=== PATIENT | female | born 1985 | race African-American/Black ===

== ENCOUNTER 2016-12-27 07:15 | Inpatient (IN) | payer OTHER ==
[2016-12-27 08:32] VITALS: BMI 31.2
[2016-12-27] MEDS: DEXTROSE 5%-LACTATED RINGERS 1,000 ML IV SCH (09:10)
[2016-12-27 09:15] LABS: BASOPHIL 0.4 % (0-2.0); EOSINOPHIL 1.5 % (0-4.5); MCH 28.4 pg (25.7-33.7); MCHC 33.5 g/dl (32.0-36.0); MEAN CELL VOLUME 84.9 fl (80-96); MEAN PLT VOLUME 9.1 fl (7.5-11.1); NEUTROPHILS 52.3 % (42.8-82.8); PLATELET COUNT 195 K/MM3 (134-434); RDW 18.7 % (11.6-15.6); WHITE BLOOD COUNT 5.5 K/mm3 (4.0-10.0)
[2016-12-27 09:47] LABS: INR 0.97 (0.82-1.09); PROTHROMBIN TIME (PATIENT) 10.7 SEC (9.98-11.88)
[2016-12-27 09:50] LABS: ACTIVATED PTT 28.9 SECONDS (26.9-34.4)
[2016-12-27 09:53] LABS: CALCIUM 8.8 mg/dL (8.5-10.1); CREATININE 0.9 mg/dL (0.55-1.02)
[2016-12-27] MEDS ORDERED: OXYTOCIN 15 UNITS/ LR 250 ML 250 ML IVPB SCH (10:00)
--- NOTE | 2016-12-27 10:47 | HP ---
Past Medical History - Primary Care Physician PCP:: Michele Cheatham - Admission Chief Complaint: 31 yo P1 with at EGA 40w5d admitted for labor induction. History of Present Illness: Post term Hemoglobin C trait. 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: Alzheimer's, CVA, Dementia, Migraine, Multiple Sclerosis, Peripheral Neuropathy, Parkinson's, Seizure, Syncope, TIA, Vertigo, Other Cardiovascular: No: AFIB, Aneurysm, Aortic Insufficiency, Aortic Stenosis, CAD, CHF, Deep Vein Thrombosis, HTN, Hyperlipdemia, [place], Mitral Insufficiency, Mitral Stenosis, Murmur, Pulmonary Hypertension, Other Pulmonary: No: Asthma, Bronchitis, Cancer, COPD, O2 Dependent, Pneumonia, Previously Intubated, Pulmonary Embolus, Pulmonary Fibrosis, Sleep Apnea, Other Gastrointestinal: No: Ascites, Cancer, Constipation, Crohn's Disease, Diverticulitis, Diverticulosis, Esophageal Varices, Gastritis, GERD, GI Bleed, Hemorrhoids, Hiatal Hernia, Inflamatory Bowel Disease, Irritable Bowel Disease, Pancreatitis, Peptic Ulcer Disease, Ulcerative Colitis, Other Hepatobiliary: No: Cirrhosis, Cholelithiasis, Cholecystitis, Choledocholithiasis , Hepatitis A, Hepatitis B, Hepatitis C, Other Renal/: No: Renal Failure, Renal Inusuff, BPH, Cancer, Hematuria, Hemodialysis , Neurogenic Bladder, Renal Calculi, UTI, Other Reproductive: No: Ectopic , Endometriosis, Fibroids, PID, Polycystic Ovary Syndrome, Postmenopausal, Other ...: 2 ...Para: 1 ...Term: 1 () ...: 0 ...Spon : 0 ...Induced : 0 ...Multiple Gestation: 0 ...LMP: 03/14/16 ... Weeks Gestation by Dates: 41.1 ...EDC by Dates: 12/19/16 ...EDC by Sono: 12/22/16 Heme/Onc: Yes: Anemia Infectious Disease: No: AIDS, C-Diff, Herpes Zoster, HIV, MRSA, STD's, Tuberculosis, VREF, Other Psych: No: Addictions, Anxiety, Bipolar, Depression, Panic, Psychosis, Schizophrenia, Other Musculoskeletal: No: Bursitis, Chronic low back pain, Hemiparesis, Hemiplegia, Osteoarthritis, Paraplegia, Other Rheumatology: No: Fibromyalgia, Gout, Lupus, Rheumatoid Arthritis, Sarcoidosis, Vasculitis, Other ENT: No: Allergic Rhinitis, Sinusitis, Other Endocrine: No: Bountiful's Disease, Erika's Disease, Diabetes Insipidus, Diabetes Mellitus, Hyperparathyroidism, Hyperthyroidism, Hypothyroidism, Osteopenia, SIADH, Other Dermatology: No: Basal Cell, Cellulitis, Eczema, Melanoma, Psoriasis, Squamous Cell, Other - Past Surgical History Past Surgical History: Yes: Breast Biopsy (Right) Hx Myomectomy: No Hx Transabdominal Cerclage: No - Smoking History Smoking history: Never smoked Have you smoked in the past 12 months: No Aproximately how many cigarettes per day: 0 - Alcohol/Substance Use Hx Alcohol Use: No History of Substance Use: reports: None - Social History Usual Living Arrangement: Yes: With Significant Other, With Child ADL: Independent History of Recent Travel: No Home Medications - Allergies Allergies/Adverse Reactions: Allergies Allergy/AdvReac Type Severity Reaction Status Date / Time No Known Allergies Allergy Verified 12/15/16 12:48 - Home Medications Home Medications: Ambulatory Orders Vitamins (Sjr) - [ .Vitamins *Rx*] 1 tab PO DAILY 07/10/12 Calcium Carbonate [Tums] 200 mg PO PRN 12/27/16 Family Disease History - Family Disease History Family History: Unremarkable Review of Systems Findings/Remarks: No complaints, well appearing - Review of Systems Constitutional: reports: No Symptoms Eyes: reports: No Symptoms HENT: reports: No Symptoms Neck: reports: No Symptoms Cardiovascular: reports: No Symptoms Respiratory: reports: No Symptoms Gastrointestinal: reports: No Symptoms Genitourinary: reports: No Symptoms Breasts: reports: No Symptoms Reported Musculoskeletal: reports: No Symptoms Integumentary: reports: No Symptoms Endocrine: reports: No Symptoms Hematology/Lymphatic: reports: No Symptoms Psychiatric: reports: No Symptoms Pain Intensity: 0 Physical Exam - Maternity Vital Signs: Vital Signs Temperature 98.2 F 12/27/16 10:00 Pulse Rate 80 12/27/16 10:00 Respiratory Rate 18 12/27/16 10:00 Blood Pressure 137/79 12/27/16 10:00 O2 Sat by Pulse Oximetry (%) Constitutional: Yes: Well Nourished, No Distress, Calm Eyes: Yes: WNL, Conjunctiva Clear HENT: Yes: WNL, Atraumatic, Normocephalic Neck: Yes: WNL, Supple, Trachea Midline Cardiovascular: Yes: WNL, Regular Rate and Rhythm - Abdominal Exam/OB Fundal Height: 40 (EFW 8.5 lbs by Watson maneuvers) Number of Fetuses: Single Presentation: Vertex Contractions: No Intensity: Unaware Monitor Mode: External Heart Rate (range): 140 Category: I Accelerations: Non-Uniform Decelerations: None - Vaginal Exam/OB Vaginal Bleediing: No Speculum Exam: No Dilatation (cm): 2 Effacement (%): 50 Amniotic Membrane Status: Intact Presentation: Vertex/Position Station: -4 (Adequate gynecoid pelvimetry) - Physical Exam Musculoskeletal: Yes: WNL Extremities: Yes: WNL Edema: No Integumentary: Yes: WNL Deep Tendon Reflex Grade: Normal +2 ...Motor Strength: WNL Psychiatric: Yes: WNL, Alert, Oriented - Labs Lab Results: CBC, BMP 12/27/16 08:55 12/27/16 08:55 Hemorrhage Risk Assessment - Risk Factors Medium Risk Factors: Yes: None High Risk Factors: Yes: None Risk Score: 1 Risk Level: Medium Risk Imaging - Results Ultrasound: Report Reviewed Assessment/Plan 31 yo P1 with at EGA 40w5d admitted for labor induction. Fetus with Category I tracing and requires no intervention. Patient is not in labor and has favorable cervix. We discussed the treatment options including expectant management awaiting spontaneous labor, Cervidil vs pitocin for labor induction. We discussed the risks and benefits of each option. The patient prefers to proceed with pitocin and monitor labor progress. I explained the risks of failed induction, tacysystole, distress, shoulder dystocia, and/or maternal trauma, hemorrhage, need for section, etc. The pt verbalized her understanding and requested to proceed.
[2016-12-27] MEDS ORDERED: TUBERCULIN PPD 5 TU/0.1ML SYRINGE (IN PATIENT USE ONLY) ID ONE (11:00)
[2016-12-27 11:43] LABS: HIV 1 AGp24 NEGATIVE
[2016-12-27 11:46] LABS: HIV 1 & 2 AB NEGATIVE
[2016-12-27] MEDS ORDERED: BUTORPHANOL TARTRATE 1 MG/ML VIAL IVPB ONE (20:00)
[2016-12-27] MEDS ORDERED: PROMETHAZINE HCL 25 MG/1 ML VIAL IVPB ONE (20:00)
--- NOTE | 2016-12-27 20:21 | PN ---
Ante-Partal Exam - Subjective Subjective: No complaints, s/p AROM at 7pm with minimal fluid Vital Signs: Vital Signs Temperature 98.2 F 12/27/16 14:00 Pulse Rate 70 12/27/16 19:00 Respiratory Rate 20 12/27/16 19:00 Blood Pressure 123/79 12/27/16 19:00 O2 Sat by Pulse Oximetry (%) Bleeding: No Headache: No Visual changes: No Right upper quadrant pain: No Pain (scale 1-10): 3 - Contractions Contractions: Yes Regularity: Irregular Intensity: Mild Monitor Mode: External - Exam during Labor Heart Rate: 130 Variability: Moderate Heart Rate Location: Midline Category: I Monitor Accelerations: Present Monitor Decelerations: None Exam: Vaginal Dilatation (cm): 3 Effacement (%): 70 Amniotic Membrane Status: Ruptured (AROM) Amniotic Fluid: Clear Presentation: Vertex Station: -3 - Intrapartum Hemorrhage Risk Medium Risk Factors: None High Risk Factors: None Risk Score: 0 Risk Level: Low Risk - Assessment/Plan Assessment/Plan: 31 yo P1 induced at 40w5d. Patient is progressing in latent labor. Fetus requires no intervention. Monitor labor progress. Continue oxytocin.
[2016-12-27] MEDS: D5W-LR W/ 20 UNITS OXYTOCIN 1,000 ML IV SCH (22:34)
[2016-12-27 22:41] LABS: ARTERIAL BLD GAS O2 SATURATION 26.9 % (90-98.9); ARTERIAL BLOOD GAS BASE EXCESS -1.7 meq/l (-2-2); ARTERIAL BLOOD GAS HCO3 25.7 meq/L (22-26); ARTERIAL BLOOD GAS pH 7.29 (7.35-7.45)
[2016-12-27 22:45] LABS: PT. ON O2? NO
[2016-12-27] MEDS ORDERED: METHYLERGONOVINE MALEATE 0.2 MG/1 ML AMP IM PRN (22:46)
[2016-12-27] MEDS ORDERED: BENZOCAINE 28 GM HEMORRHOIDAL OINTMENT TP PRN (22:46)
[2016-12-27] MEDS ORDERED: BISACODYL 10 MG SUPP.RECT RC PRN (22:46)
[2016-12-27] MEDS ORDERED: WITCH HAZEL 50% (TUCKS) 40 PAD/JAR PAD TP PRN (22:46)
[2016-12-27] MEDS ORDERED: BENZOCAINE 20% 57 GM BOTTLE TP PRN (22:46)
[2016-12-27 22:47] LABS: ARTERIAL BLOOD GAS PO2 18.3 mmHg (80-100)
--- NOTE | 2016-12-27 23:02 | PN ---
Delivery - Delivery Vaginal Delivery: No Problems, Spontaneous Type of Anesthesia: Local Episiotomy/Laceration: Vaginal Extension/lac, 2nd degree EBL (cc): 300 Delivery, Single - Stages of Labor Date 1st Stage Initiatied: 12/27/16 Time 1st Stage Initiated: 20:00 Date 2nd Stage Initiated: 12/27/16 Time 2nd Stage Initiated: 22:05 Date of Delivery: 12/27/16 Time of Delivery: 22:19 Date Placenta Delivered: 12/27/16 Time Placenta Delivered: 22:34 Placenta: Yes: Spontaneous, Normal Configuration - Condition of Infant Senior Financial Reporting Accountant/Jewel Lathe Operator Present: No Gender: Female Position: Left, OA Total Hours ROM (Hrs/Mins): 3hrs/24mins - 1 Minute Total Score: 9 5 Minutes Total Score: 9 - Feeding Plan Initial Plan: Elected not to breastfeed exclusively throughout hospitalization Remarks - Remarks Remarks: Venous cord blood clotted
[2016-12-27] MEDS: ACETAMINOPHEN 325 MG TABLET (FP) PO PRN (23:30)
[2016-12-27] MEDS: IBUPROFEN 600 MG TABLET (FP) PO PRN (23:30)
[2016-12-28] MEDS: D5W-LR W/ 20 UNITS OXYTOCIN 1,000 ML IV SCH (03:11)
[2016-12-28] MEDS: ACETAMINOPHEN 325 MG TABLET (FP) PO PRN ×4 (05:28→19:37)
[2016-12-28] MEDS: IBUPROFEN 600 MG TABLET (FP) PO PRN ×4 (05:29→19:36)
[2016-12-28 08:51] LABS: BASOPHIL 0.4 % (0-2.0); EOSINOPHIL 0.7 % (0-4.5); MCH 28.3 pg (25.7-33.7); MCHC 33.1 g/dl (32.0-36.0); MEAN CELL VOLUME 85.3 fl (80-96); MEAN PLT VOLUME 9.1 fl (7.5-11.1); NEUTROPHILS 65.2 % (42.8-82.8); PLATELET COUNT 153 K/MM3 (134-434); RDW 18.5 % (11.6-15.6); WHITE BLOOD COUNT 8.2 K/mm3 (4.0-10.0)
[2016-12-28] MEDS: PRENATAL VITAMINS W/ FOLIC ACID TABLET (FP) PO SCH (09:27)
[2016-12-28] MEDS ORDERED: DIPHTH,PERTUSS(ACELL),TET 0.5 ML DISP.SYRIN IM ONE (10:00)
--- NOTE | 2016-12-28 21:40 | PN ---
Post Progress Note - Subjective Subjective: No complaints Post Day: 1 Type of Delivery: Vital Signs: Vital Signs Temperature 98.8 F 12/28/16 18:00 Pulse Rate 100 H 12/28/16 18:00 Respiratory Rate 20 12/28/16 18:00 Blood Pressure 129/79 12/28/16 18:00 O2 Sat by Pulse Oximetry (%) 100 12/27/16 23:15 Breast Exam: Yes: Soft Uterus: Yes: Fundus Firm, Fundus below umbilicus, Non-tender Abdomen/GI: Yes: Abdomen soft, Passing flatus, Tolerating PO Lochia: Yes: Rubra Lochia, amount: Small Extremities: Yes: Calves non-tender, Edema Perineum: Yes: Episiotomy Activity: Ambulating - Labs Labs: CBC WBC 8.2 K/mm3 (4.0-10.0) D 12/28/16 07:45 RBC 2.76 M/mm3 (3.60-5.2) L D 12/28/16 07:45 Hgb 7.8 GM/dL (10.7-15.3) L D 12/28/16 07:45 Hct 23.6 % (32.4-45.2) L D 12/28/16 07:45 MCV 85.3 fl (80-96) 12/28/16 07:45 MCHC 33.1 g/dl (32.0-36.0) 12/28/16 07:45 RDW 18.5 % (11.6-15.6) H 12/28/16 07:45 Plt Count 153 K/MM3 (134-434) D 12/28/16 07:45 MPV 9.1 fl (7.5-11.1) 12/28/16 07:45 Neutrophils % 65.2 % (42.8-82.8) D 12/28/16 07:45 Lymphocytes % 26.0 % (8-40) D 12/28/16 07:45 Monocytes % 7.7 % (3.8-10.2) 12/28/16 07:45 Eosinophils % 0.7 % (0-4.5) 12/28/16 07:45 Basophils % 0.4 % (0-2.0) 12/28/16 07:45 Assessment/Plan 31 yo P2 s/p , doing well stable, afebrile. care instructions reviewed. Continue routine care. Ambulation encouraged Discharge instruction reviewed.
[2016-12-28] MEDS ORDERED: SENNOSIDES/DOCUSATE COMBO (SENNA PLUS) TABLET (UD) PO PRN (22:00)
[2016-12-29 08:11] VITALS: BP 115/73; PULSE 93; TEMP 98.1
[2016-12-29] MEDS: PRENATAL VITAMINS W/ FOLIC ACID TABLET (FP) PO SCH (09:18)
[2016-12-29] MEDS: ACETAMINOPHEN 325 MG TABLET (FP) PO PRN (09:19)
[2016-12-29] MEDS: IBUPROFEN 600 MG TABLET (FP) PO PRN (09:22)
[2016-12-29] MEDS: DEXTROSE 5%-LACTATED RINGERS 1,000 ML IV SCH (11:12)
[2016-12-29] MEDS: D5W-LR W/ 20 UNITS OXYTOCIN 1,000 ML IV SCH (11:12)
== END 2016-12-29 11:05 | disposition home or self-care (01) | DRG 560 ==
LOC: JLDR 07:15 → J3W 12-28 01:00
PROVIDERS: ADMIT Obstetrics & Gynecology; ATTEND Obstetrics & Gynecology
PROC: 0KQM0ZZ Repair Perineum Muscle, Open Approach (ICD-10-PCS; principal; 2016-12-27)
PROC: 0W8NXZZ Division of Female Perineum, External Approach (ICD-10-PCS; 2016-12-27)
PROC: 10E0XZZ Delivery of Products of Conception, External Approach (ICD-10-PCS; 2016-12-27)
DX: O70.1 Second degree perineal laceration during delivery (principal); Z3A.40 40 weeks gestation of pregnancy; O48.0 Post-term pregnancy; Z37.0 Single live birth
CPT/HCPCS: 36415; 36600; 59409; 80048; 82803; 85025; 85610; 85730; 86593; 86850; 86900; 86901; 87389; 90715

== ENCOUNTER 2017-11-28 04:41 | Day surgery (SDC) | payer OTHER ==
[2017-11-23 12:21] VITALS: BMI 28.1
--- NOTE | 2017-11-28 10:12 | HP ---
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: Alzheimer's, CVA, Dementia, Migraine, Multiple Sclerosis, Peripheral Neuropathy, Parkinson's, Seizure, Syncope, TIA, Vertigo, Other Cardiovascular: No: AFIB, Aneurysm, Aortic Insufficiency, Aortic Stenosis, CAD, CHF, Deep Vein Thrombosis, HTN, Hyperlipdemia, [place], Mitral Insufficiency, Mitral Stenosis, Murmur, Pulmonary Hypertension, Other Pulmonary: No: Asthma, Bronchitis, Cancer, COPD, O2 Dependent, Pneumonia, Previously Intubated, Pulmonary Embolus, Pulmonary Fibrosis, Sleep Apnea, Other Gastrointestinal: No: Ascites, Cancer, Constipation, Crohn's Disease, Diverticulitis, Diverticulosis, Esophageal Varices, Gastritis, GERD, GI Bleed, Hemorrhoids, Hiatal Hernia, Inflamatory Bowel Disease, Irritable Bowel Disease, Pancreatitis, Peptic Ulcer Disease, Ulcerative Colitis, Other Hepatobiliary: No: Cirrhosis, Cholelithiasis, Cholecystitis, Choledocholithiasis , Hepatitis A, Hepatitis B, Hepatitis C, Other Renal/: No: Renal Failure, Renal Inusuff, BPH, Cancer, Hematuria, Hemodialysis , Neurogenic Bladder, Renal Calculi, UTI, Other Reproductive: No: Ectopic , Endometriosis, Fibroids, PID, Polycystic Ovary Syndrome, Postmenopausal, Other ...Para: 2 Heme/Onc: Yes: Anemia Infectious Disease: No: AIDS, C-Diff, Herpes Zoster, HIV, MRSA, STD's, Tuberculosis, VREF, Other Psych: No: Addictions, Anxiety, Bipolar, Depression, Panic, Psychosis, Schizophrenia, Other Musculoskeletal: No: Bursitis, Chronic low back pain, Hemiparesis, Hemiplegia, Osteoarthritis, Paraplegia, Other Rheumatology: No: Fibromyalgia, Gout, Lupus, Rheumatoid Arthritis, Sarcoidosis, Vasculitis, Other ENT: No: Allergic Rhinitis, Sinusitis, Other Endocrine: No: Miguelito's Disease, Erika's Disease, Diabetes Insipidus, Diabetes Mellitus, Hyperparathyroidism, Hyperthyroidism, Hypothyroidism, Osteopenia, SIADH, Other Dermatology: No: Basal Cell, Cellulitis, Eczema, Melanoma, Psoriasis, Squamous Cell, Other - Past Surgical History Past Surgical History: Yes: Breast Biopsy (Right) Hx Myomectomy: No Hx Transabdominal Cerclage: No - Smoking History Smoking history: Never smoked Have you smoked in the past 12 months: No Aproximately how many cigarettes per day: 0 - Alcohol/Substance Use Hx Alcohol Use: No History of Substance Use: reports: None - Social History Usual Living Arrangement: Yes: With Spouse, With Child ADL: Independent History of Recent Travel: No Home Medications - Allergies Allergies/Adverse Reactions: Allergies Allergy/AdvReac Type Severity Reaction Status Date / Time Fish Containing Products Allergy Mild ITCH IN Verified 11/28/17 09:40 THROAT - Home Medications Home Medications: Ambulatory Orders NK [No Known Home Medication] 11/23/17 Family Disease History - Family Disease History Family History: Unremarkable Review of Systems - Review of Systems Constitutional: reports: No Symptoms Eyes: reports: No Symptoms HENT: reports: No Symptoms Neck: reports: No Symptoms Cardiovascular: reports: No Symptoms Respiratory: reports: No Symptoms Gastrointestinal: reports: No Symptoms Genitourinary: reports: No Symptoms Breasts: reports: No Symptoms Reported Musculoskeletal: reports: No Symptoms Integumentary: reports: No Symptoms Neurological: reports: No Symptoms Endocrine: reports: No Symptoms Hematology/Lymphatic: reports: No Symptoms Psychiatric: reports: No Symptoms Pain Intensity: 0 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 Vital Signs: Vital Signs Temperature 97.9 F 11/28/17 09:37 Pulse Rate 92 H 11/28/17 09:37 Respiratory Rate 16 11/28/17 09:37 Blood Pressure 113/82 11/28/17 09:37 O2 Sat by Pulse Oximetry (%) 99 11/28/17 09:37 Constitutional: Yes: Well Nourished, No Distress, Calm Eyes: Yes: WNL, Conjunctiva Clear HENT: Yes: WNL, Atraumatic, Normocephalic Neck: Yes: WNL, Supple, Trachea Midline Cardiovascular: Yes: WNL, Regular Rate and Rhythm Respiratory: Yes: WNL, Regular, CTA Bilaterally Gastrointestinal: Yes: WNL, Normal Bowel Sounds, Soft ...Rectal Exam: Yes: Deferred Renal/: Yes: WNL Pelvis: Yes: WNL External Genitalia: Yes: Normal Internal Exam Deferred: No Vaginal Exam: Yes: Normal Cervix: Yes: Normal Uterus: Yes: Normal Adnexa: Normal: Left, Right Breast(s): Yes: WNL Musculoskeletal: Yes: WNL Extremities: Yes: WNL Edema: No Integumentary: Yes: WNL Neurological: Yes: WNL, Alert, Oriented ...Motor Strength: WNL Psychiatric: Yes: WNL, Alert, Oriented Assessment/Plan 32yo P2 admitted for surgical sterilization. The pt prefers laparoscopic bilateral tubal ligation. We had discussed the risks, benefits, alternatives of surgery at length including but not limited to infection, bleeding, scarring, perforation, amenorrhea, infertility, hysterectomy, injury to surrounding/ underlying organs or structure, need for additional surgery to repair/treat any complications, etc. The patient verbalized understanding and requested to proceed with surgery. I emphasized that all surgeries have risks and no guarantees can be provided.
[2017-11-28] MEDS ORDERED: fentaNYL CITRATE 250 MCG/5 ML VIAL ONE (10:20)
[2017-11-28] MEDS ORDERED: MIDAZOLAM HCL 2 MG/2 ML SINGLE DOSE VIAL ONE ×2 (10:21)
[2017-11-28] MEDS ORDERED: LIDOCAINE HCL 1%, 10 MG/ML (20ML VIAL) ONE (10:30)
[2017-11-28] MEDS ORDERED: ceFAZolin SODIUM 1 GM VIAL ONE (10:30)
[2017-11-28] MEDS ORDERED: PROPOFOL 20 ML ONE (10:30)
[2017-11-28] MEDS ORDERED: ROCURONIUM BROMIDE 50 MG/5 ML VIAL ONE (10:30)
[2017-11-28] MEDS ORDERED: DEXAMETHASONE SOD PHOSPHATE 4 MG/1 ML VIAL ONE (10:30)
[2017-11-28] MEDS ORDERED: ceFAZolin SODIUM 1 GM VIAL IVPB ONE (10:50)
[2017-11-28] MEDS ORDERED: ACETAMINOPHEN INJECTION 100 ML IVPB ONE (10:54)
[2017-11-28] MEDS ORDERED: DESFLURANE GAS 240 ML BOTTLE IH ONE (10:55)
[2017-11-28] MEDS ORDERED: NEOSTIGMINE METHYLSULFATE 0.5 MG/ML - 10 ML MDV ONE (11:29)
--- NOTE | 2017-11-28 11:35 | OP ---
Operative Note - Note: Operative Date: 11/28/17 Pre-Operative Diagnosis: Sterilization Operation: Laparoscopic BTL Findings: Normal uterus, tubes, ovaries Post-Operative Diagnosis: Same as Pre-op Surgeon: Michele Cheatham Head Of English: Elver Blackmon Anesthesiologist/RESIDENT IN DIAGNOSTIC RADIOLOGY: Luís Damian Anesthesia: General Estimated Blood Loss (mls): 2 Drains & Tubes with Location: Maciel cath Drains, Volume Out (mls): 100 Blood Volume Replaced (mls): 0 Fluid Volume Replaced (mls): 1,000 Operative Report Dictated: Yes
[2017-11-28] MEDS ORDERED: PROMETHAZINE HCL 25 MG/1 ML VIAL IVPUSH PRN (11:57)
[2017-11-28] MEDS ORDERED: ONDANSETRON 4 MG/2 ML VIAL IVPUSH PRN (11:57)
[2017-11-28] MEDS ORDERED: oxyCODONE HCL 5 MG TABLET PO PRN (11:57)
[2017-11-28] MEDS ORDERED: LACTATED RINGERS SOLUTION 1,000 ML IV SCH (12:00)
[2017-11-28] MEDS ORDERED: ONDANSETRON 4 MG/2 ML VIAL ONE (12:05)
[2017-11-28] MEDS ORDERED: oxyCODONE HCL 5 MG TABLET ONE (14:20)
[2017-11-28 14:26] VITALS: TEMP 98.3
[2017-11-28] MEDS ORDERED: oxyCODONE HCL 5 MG TABLET PO ONE (14:30)
[2017-11-28 15:36] VITALS: BP 117/71; PULSE 92
--- NOTE | 2017-11-28 21:03 | OP ---
DATE OF OPERATION: 11/28/2017 PREOPERATIVE DIAGNOSIS: Sterilization. POSTOPERATIVE DIAGNOSIS: Sterilization. PROCEDURE: Laparoscopic bilateral tubal ligation with fulguration of oviducts. SURGEON: Sulaiman Cheatham MD CUSTOMER LIAISON: Elver Blackmon MD ANESTHESIOLOGIST: Luís Damian MD ANESTHESIA: General. COMPLICATIONS: None. ESTIMATED BLOOD LOSS: 2 mL URINE OUTPUT: 100 mL INTRAVENOUS FLUIDS: 1000 mL of crystalloids. PATHOLOGY: None. FINDINGS: Examination under anesthesia revealed a small anteverted uterus with no pelvic or adnexal masses. Laparoscopy revealed normal uterus, fallopian tubes, and ovaries. Normal visualized portion of the bowel, gallbladder, liver, and stomach. DESCRIPTION OF PROCEDURE: The patient was met preoperatively. Risks, benefits, and alternatives of surgery were discussed in details. All questions were answered. The patient was brought to the OR with the IV running. She was placed on the surgical table in the supine position. General endotracheal anesthesia was achieved without difficulty. The patient was then placed in a dorsal lithotomy position using adjustable Naveen stirrups. The patient was prepped and draped in the usual sterile fashion. A HUMI uterine manipulator was inserted without difficulty. A Maciel catheter was inserted and left to drain to gravity. The surgeons then proceeded with the laparoscopy. A 5-mm intraumbilical incision was made with a knife. A Veress needle was introduced into the peritoneal cavity without complications. The pneumoperitoneum was produced with intraabdominal pressure and not exceeding 15 mmHg. The Veress needle was then removed, and a 5-mm trocar was introduced through the umbilical incision without complications. A second 5-mm trocar was placed approximately 2 cm above the pubic symphysis under direct visualization. The right fallopian tube was then identified and followed to the fimbriated end. The mid-portion of the right fallopian tube was then cauterized using bipolar cautery for the length of approximately 3 cm. The left fallopian tube was then identified and followed to the fimbriated end. The mid-portion of the left fallopian tube was also cauterized using bipolar cautery for the length of approximately 3 cm. Once this was completed, good hemostasis was noted. The pneumoperitoneum was released. The trocars were removed under direct visualization. Good hemostasis was confirmed. The HUMI and Maciel were removed. The patient was returned to supine position. The patient tolerated the procedure well. Sponge, lap, and instrument counts were correct. The patient was transferred to recovery room awake and in stable condition. SULAIMAN CHEATHAM M.D. [id number]
== END 2017-11-28 15:38 | disposition home or self-care (01) ==
LOC: JASU-SURG 04:41
PROVIDERS: ATTEND Obstetrics & Gynecology
PROC: 0U574ZZ Destruction of Bilateral Fallopian Tubes, Percutaneous Endoscopic Approach (ICD-10-PCS; principal; 2017-11-28 10:00)
DX: Z30.2 Encounter for sterilization (principal)
CPT/HCPCS: 36415; 84703; 86850; 86900; 86901